=== PATIENT | female | born 1955 | race Caucasian/White ===

== ENCOUNTER 2020-11-26 03:02 | Emergency (ER) | payer BC ==
[2020-11-26] MEDS ORDERED: DOXYCYCLINE 100 MG TABLET PO STA (03:49)
--- NOTE | 2020-11-26 03:53 | ED Physician Documentation ---
PD HPI SKIN - Stated complaint Stated Complaint: INSECT BITE - Chief complaint Chief Complaint: Wound - History obtained from History obtained from: Patient - History of Present Illness Timing - onset: Today Timing - duration: Hours Timing - details: Abrupt onset, Still present Location: Abdomen Quality / character: Painful, Discolored Contributing factors: Insect bite /sting Similar symptoms before: Has not had sx before Recently seen: Not recently seen - Additional information Additional information: 65-year-old female who is recently traveled appear from [place] has discovere d that she has a tick attached to her side today she was able to remove this and is brought in for identification. She states that over the past 3 days she has been driving up here from [place] and she did not notice is taken till today. She finds an engorged floyd tick and she was able to remove this entirely and brings it in in a Ziploc bag crawling around. She has not otherwise felt ill. Review of Systems Constitutional: denies: Fever, Chills, Myalgias Eyes: denies: Decreased vision Ears: denies: Ear pain Nose: denies: Rhinorrhea / runny nose, Congestion Throat: denies: Sore throat Cardiac: denies: Chest pain / pressure, Palpitations Respiratory: denies: Dyspnea, Cough GI: denies: Abdominal Pain, Nausea, Vomiting, Constipation, Diarrhea : denies: Dysuria, Frequency Skin: reports: Bite / sting Musculoskeletal: denies: Neck pain, Back pain, Extremity pain PD PAST MEDICAL HISTORY - Past Medical History Past Medical History: Yes Cardiovascular: None Endocrine/Autoimmune: None GI: Pancreatitis, Diverticulitis Psych: Anxiety - Past Surgical History Past Surgical History: Yes General: Cholecystectomy - Present Medications Home Medications: Ambulatory Orders Medication Instructions Recorded Confirmed Alprazolam [Xanax] 1 tab PO DAILY 02/27/16 11/26/20 - Allergies Allergies/Adverse Reactions: Allergies Allergy/AdvReac Type Severity Reaction Status Date / Time codeine AdvReac Nausea Verified 11/26/20 03:17 - Social History Does the pt smoke?: No Smoking Status: Never smoker Does the pt drink ETOH?: No Does the pt have substance abuse?: No - Immunizations Immunizations are current?: Yes PD ED PE NORMAL - Vitals Vital signs reviewed: Yes (Hypertensive) - General General: Alert and oriented X 3, No acute distress, Well developed/nourished - HEENT HEENT: Atraumatic, PERRL, EOMI - Neck Neck: Supple, no meningeal sign - Respiratory Respiratory: No respiratory distress - Derm Derm: Normal color, Warm and dry, Other (Over the lateral aspect of the right abdominal wall is an area about 2 cm in diameter that is deeply violaceous and appears to be bruising under the skin and it appears as a target with a second ring around a first dense spot with a central clearing where the tick burrowed ) - Extremities Extremities: No deformity, No edema - Neuro Neuro: Alert and oriented X 3, web development manager 2-12 intact, No motor deficit, No sensory deficit, Normal speech Eye Opening: Spontaneous Motor: Obeys Commands Verbal: Oriented GCS Score: 15 - Psych Psych: Normal mood, Normal affect Results - Vitals Vitals: Vital Signs - 24 hr 11/26/20 11/26/20 03:15 03:26 Temperature 36.5 C 36.5 C Heart Rate 81 81 Respiratory 16 16 Rate Blood Pressure 159/92 H 159/92 H O2 Saturation 99 99 Oxygen O2 Source Room air PD MEDICAL DECISION MAKING - ED course Complexity details: reviewed results, re-evaluated patient, considered differential, d/w patient ED course: 65-year-old female brings in an engorged tick may have been present for 3 days and she has had a bite. The bite has a target appearance to it and the tick she brings in for identification appears like the images shown for the [place] dog tick. The patient is inside the window for prophylactic treatment for Lyme disease and she is administered 200 mg of doxycycline orally. She is asked to follow-up with her primary care doctor with development of any new or different symptoms. Departure - Departure Disposition: 01 Home, Self Care Clinical Impression: Tick bite of abdominal wall Qualifiers: Encounter type: initial encounter Qualified Code(s): S30.861A - Insect bite (nonvenomous) of abdominal wall, initial encounter; W57.XXXA - Bitten or stung by nonvenomous insect and other nonvenomous arthropods, initial encounter Condition: Stable Instructions: ED Bite Tick Abx Tx Follow-Up: [facility] [Provider Group] Comments: Today it appears you were bit by a tick and is likely did not come from a local area as the tick is engorged and usually takes more than a day to get engorged. 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 The tick identification is consistent with a dog tick and this is not usually one that will cause an issue with Lyme disease. However your bite daniel is consistent with erythema migrans and we have provided prophylaxis for lyme disease.
[2020-11-26 04:02] VITALS: BP 150/88
== END 2020-11-26 04:32 | disposition home or self-care (01) ==
LOC: ED 03:02
DX: S30.861A Insect bite (nonvenomous) of abdominal wall, initial encounter (principal); W57.XXXA Bitten or stung by nonvenomous insect and other nonvenomous arthropods, initial encounter
CPT/HCPCS: 99282; A9270

== ENCOUNTER 2020-11-29 19:50 | Emergency (ER) | payer BC ==
[2020-11-29 19:57] VITALS: BP 167/99
[2020-11-29] MEDS ORDERED: DOXYCYCLINE 100 MG TABLET PO STA (20:06)
--- NOTE | 2020-11-29 20:08 | ED Physician Documentation ---
PD HPI WOUND RECHECK - Stated complaint Stated Complaint: TICK BITE - Chief complaint Chief Complaint: Wound - Histroy obtained from History obtained from: Patient - Additional information Additional information: Returned from [place] 3 days ago and noted tick bite R flank and seen here given doxy 200mg x1. Since then the rash has progressed. She denies arthralgias, fever, myalgias. Review of Systems Constitutional: reports: Reviewed and negative Eyes: reports: Reviewed and negative Ears: reports: Reviewed and negative Nose: reports: Reviewed and negative Throat: reports: Reviewed and negative Cardiac: reports: Reviewed and negative PD PAST MEDICAL HISTORY - Past Medical History Past Medical History: Yes Cardiovascular: None Endocrine/Autoimmune: None GI: Pancreatitis, Diverticulitis Psych: Anxiety - Past Surgical History Past Surgical History: Yes General: Cholecystectomy - Present Medications Home Medications: Ambulatory Orders Medication Instructions Recorded Confirmed Alprazolam [Xanax] 1 tab PO DAILY 02/27/16 11/26/20 Doxycycline Hyclate 100 mg PO BID #42 tab 11/29/20 - Allergies Allergies/Adverse Reactions: Allergies Allergy/AdvReac Type Severity Reaction Status Date / Time codeine AdvReac Nausea Verified 11/29/20 19:52 - Social History Does the pt smoke?: No Smoking Status: Never smoker Does the pt drink ETOH?: No Does the pt have substance abuse?: No - Immunizations Immunizations are current?: Yes PD ED PE NORMAL - Vitals Vital signs reviewed: Yes - General General: Alert and oriented X 3, No acute distress - HEENT HEENT: PERRL, EOMI - Neck Neck: No bony TTP - Derm Derm: Other (She has what appears to be erythema migrans, right abdominal wall, mid axillary line just below the rib cage. It is targetoid with central necrosis.) - Neuro Neuro: Alert and oriented X 3, Normal speech Results - Vitals Vitals: Vital Signs - 24 hr 11/29/20 19:52 Temperature 36.5 C Heart Rate 88 Respiratory 16 Rate Blood Pressure 167/99 H O2 Saturation 98 Oxygen O2 Source Room air Departure - Departure Disposition: 01 Home, Self Care Clinical Impression: Erythema migrans (Lyme disease) Condition: Good Record reviewed to determine appropriate education?: Yes Instructions: ED Lyme Disease Prescriptions: Doxycycline Hyclate 100 mg PO BID #42 tab Comments: Talk with your doctor about Lyme disease testing in about a month but we are treating you presumptively for this now. Instead of the sun while on the antibiotics. Return if worsening
== END 2020-11-29 20:11 | disposition home or self-care (01) ==
LOC: ED 19:50
DX: S30.861A Insect bite (nonvenomous) of abdominal wall, initial encounter (principal); A69.20 Lyme disease, unspecified; W57.XXXA Bitten or stung by nonvenomous insect and other nonvenomous arthropods, initial encounter
CPT/HCPCS: 99282; 99284; A9270

== ENCOUNTER 2023-10-17 22:25 | Emergency (ER) | payer BC ==
--- NOTE | 2023-10-18 00:08 | ED Physician Documentation ---
History of Present Illness - Stated complaint Stated Complaint: LT HAND SWOLLEN - Chief complaint Chief Complaint: Wound - Additonal information Additional information: Patient 68-year-old female with concern for tick bite to left hand. Noted tick on left hand approximately 1 day ago. Reports history of Lyme disease requiring prolonged course doxycycline. Is requesting doxycycline at this time. Denies fever, chills, chest pain, shortness of breath, abdominal pain, nausea, vomiting, diarrhea, constipation. Review of Systems Constitutional: denies: Fever Eyes: denies: Loss of vision Ears: denies: Loss of hearing Nose: denies: Rhinorrhea / runny nose Throat: denies: Dental pain / toothache Cardiac: denies: Chest pain / pressure Respiratory: denies: Dyspnea, Cough GI: reports: Abdominal Pain : denies: Dysuria Skin: reports: Rash PD PAST MEDICAL HISTORY - Past Medical History Past Medical History: Yes Cardiovascular: Hypertension Endocrine/Autoimmune: None GI: Pancreatitis, Diverticulitis Psych: Anxiety - Past Surgical History Past Surgical History: Yes General: Cholecystectomy - Present Medications Home Medications: Ambulatory Orders Medication Instructions Recorded Confirmed Bacitracin Zinc Oint 1 applic TOP BID #1 each 10/18/23 Doxycycline Hyclate 100 mg PO BID #20 tab 10/18/23 - Allergies Allergies/Adverse Reactions: Allergies Allergy/AdvReac Type Severity Reaction Status Date / Time codeine AdvReac Nausea Verified 10/17/23 22:36 - Social History Does the pt smoke?: No Smoking Status: Never smoker Does the pt drink ETOH?: No Does the pt have substance abuse?: No - Immunizations Immunizations are current?: Yes PD ED PE NORMAL - General General: Alert and oriented X 3 - Respiratory Respiratory: No respiratory distress - Derm Derm: Other (There is a 0.5 mm COVID area of erythema on the dorsum of the left hand overlying the first lumbrical. No rubor, induration, fluctuance.) Results - Vitals Vitals: Vital Signs - 24 hr 10/17/23 22:31 Temperature 36.4 C L Heart Rate 77 Respiratory 16 Rate Blood Pressure 150/93 H O2 Saturation 97 Oxygen O2 Source Room air PD Medical Decision Making - ED course Complexity details: d/w patient ED course: Patient presents with concern for tick bite to the dorsum of her left hand. No indications tickborne illness here in the emergency department. Patient requested course of doxycycline. Discussed pros cons of utilization of this medication and in shared decision making will provide course doxycycline and encouraged topical antibiotic ointment. Will encourage careful follow-up with primary care. Clear return precautions given. Departure - Departure Disposition: 01 Home, Self Care Clinical Impression: Tick bite Qualifiers: Encounter type: initial encounter Site of tick bite: hand Laterality: left Qualified Code(s): S60.562A - Insect bite (nonvenomous) of left hand, initial encounter; W57.XXXA - Bitten or stung by nonvenomous insect and other nonvenomous arthropods, initial encounter Instructions: ED Bite Tick Abx Tx Prescriptions: Bacitracin Zinc Oint 1 applic TOP BID #1 each Doxycycline Hyclate 100 mg PO BID #20 tab Comments: Thank you for allowing us to care for you at [facility]. A request of written a prescription for topical antibiotic ointment as well as a short course doxycycline which were sent to your preferred pharmacy, [place] [facility]. Please follow-up with your primary care doctor soon as possible. If it anytime you have new or worsening symptoms please not hesitate to return. Forms: PCP List
[2023-10-18] MEDS: DOXYCYCLINE 100 MG TABLET PO STA (00:17)
[2023-10-18 00:22] VITALS: BP 148/90; O2SAT 98
== END 2023-10-18 00:20 | disposition home or self-care (01) ==
LOC: ED 22:25
DX: S60.562A Insect bite (nonvenomous) of left hand, initial encounter (principal); W57.XXXA Bitten or stung by nonvenomous insect and other nonvenomous arthropods, initial encounter; I10 Essential (primary) hypertension; Z86.19 Personal history of other infectious and parasitic diseases
CPT/HCPCS: 99283; A9270